=== PATIENT | male | born 1975 | race Caucasian/White ===

== ENCOUNTER 2022-03-31 11:27 | Inpatient (IN) | payer BC ==
[~2022-03-31] VITALS: Ht 177.8 cm; Wt 84.1 kg
[2022-03-31 19:46] LABS: BASOPHILS % (AUTO) 0.2 % (0-1); EOSINOPHILS % (AUTO) 0.1 % (0-6); HEMATOCRIT 45.1 % (42.0-52.0); HEMOGLOBIN 15.7 g/dl (14.0-17.9); LYMPHOCYTES # (AUTO) 0.6 X10'3 (1.1-4.8); LYMPHOCYTES % (AUTO) 14.7 % (21-51); MEAN CORPUSCULAR HEMOGLOBIN 35.1 PG (27.0-31.0); MEAN CORPUSCULAR HGB CONC 34.8 g/dL (33.0-36.5); MEAN CORPUSCULAR VOLUME 100.8 FL (78-98); MEAN PLATELET VOLUME 7.1 FL (7.4-10.4); MONOCYTES # (AUTO) 0.2 X10'3 (0-0.9); MONOCYTES % (AUTO) 4.3 % (2-12); NEUTROPHILS # (AUTO) 3.5 X10'3 (1.8-7.7); NEUTROPHILS % (AUTO) 80.7 % (42-75); PLATELET COUNT 109 X10'3 (140-440); RED BLOOD COUNT 4.47 X10'6 (4.70-6.10); RED CELL DISTRIBUTION WIDTH 14.4 % (11.5-14.5); WHITE BLOOD COUNT 4.4 X10'3 (4.5-11.0)
[2022-03-31 20:00] LABS: ANION GAP 28 (8-16); BLOOD UREA NITROGEN 13 MG/DL (7-18); BUN/CREATININE RATIO 16.3 (5.4-32.0); CALCIUM 8.6 MG/DL (8.5-10.1); CHLORIDE 91 MMOL/L (99-107); GLUCOSE 89 MG/DL (70-104); POTASSIUM 3.8 MMOL/L (3.5-5.1); SODIUM 133 MMOL/L (135-145); eGFR > 90 ML/MIN
[2022-03-31 20:01] LABS: ALANINE AMINOTRANSFERASE 81 U/L (12-78); ALBUMIN 3.7 G/DL (3.4-5.0); ALBUMIN/GLOBULIN RATIO 1.2 (1.1-1.5); ALKALINE PHOSPHATASE 124 IU/L (46-116); ASPARTATE AMINO TRANSFERASE 161 U/L (10-37); BILIRUBIN,TOTAL 0.7 MG/DL (0.1-1.0); TOTAL PROTEIN 6.9 G/DL (6.4-8.2)
[2022-03-31 20:02] LABS: ETHANOL 0.406 GM/DL (0.0-0.010); LIPASE 1625 U/L (73-393)
[2022-03-31 20:04] LABS: TOTAL CARBON DIOXIDE 13.9 MMOL/L (24-32)
[2022-03-31] MEDS ORDERED: folic acid 1mg/0.2ml inj IV ONE (20:15)
[2022-03-31] MEDS ORDERED: thiamine 100mg/ml 2ml inj. IV ONE (20:15)
[2022-03-31] MEDS ORDERED: normal saline 1000ML IV soln IV ONE (20:15)
[2022-03-31] MEDS ORDERED: dextrose 5%-1/2 normal saline 1,000 ML IV ONE (20:40)
[2022-03-31] MEDS ORDERED: nicotine 21mg patch - 24 hr TD ONE (20:45)
[2022-03-31] MEDS ORDERED: LORazepam 2 mg/ml vial IV ONE (20:45)
[2022-03-31] MEDS ORDERED: temazepam 15mg capsule PO PRN (21:00)
[2022-03-31] MEDS ORDERED: ARIP5TAB60 PO (21:35)
[2022-03-31] MEDS ORDERED: CITA40TA16 PO (21:35)
[2022-03-31] MEDS ORDERED: PANT40TA54 PO (21:35)
[2022-03-31] MEDS ORDERED: potassium Cl 20 mEq SR tablet PO PRN (22:10)
[2022-03-31] MEDS ORDERED: potassium Cl 40MEQ/1/2NS 520ml 520 ML IV PRN (22:10)
[2022-03-31] MEDS ORDERED: magnesium Cl slow-release 64mg tablet PO PRN (22:10)
[2022-03-31] MEDS ORDERED: mag hydrox/Alum hydrox/simeth 30ml oral suspension PO PRN (22:10)
[2022-03-31] MEDS ORDERED: magnesium 4gm in 100ml NS 100 ML IV PRN (22:10)
[2022-03-31] MEDS ORDERED: acetaminophen 325mg tablet PO PRN ×2 (22:10)
[2022-03-31] MEDS ORDERED: ondansetron/PF 4mg/2ml inj IV PRN (22:10)
[2022-03-31] MEDS ORDERED: magnesium hydroxide 30ml (MOM) UD suspension PO PRN (22:10)
[2022-03-31] MEDS ORDERED: dicyclomine 10 MG capsule PO PRN (22:15)
[2022-03-31] MEDS: pantoprazole 40mg Tablet.DR PO SCH (22:47)
[2022-03-31] MEDS: normal saline 1000ml 1,000 ML IV SCH (23:50)
--- NOTE | 2022-04-01 01:07 | NUR ---
ANTHONY [phone] GIRLFRIEND
[2022-04-01] MEDS: LORazepam 2 mg/ml vial IV PRN ×2 (01:15→19:44)
--- NOTE | 2022-04-01 01:45 | NUR ---
PT REFUSING TO STAY IN BED AND REFUSING TO COMPLY WITH THE NPO ORDERS. PT EDUCATED ON THE IMPORTANCE OF THE NPO ORDERS. PT IS CONTINUING TO EAT FOOD FROM HOME. DR BOWEN NOTIFIED OF PTS NONCOMPLIANCE WITH NPO ORDERS.
[2022-04-01] MEDS ORDERED: haloperidol lactate 5mg/ml inj IM ONE (02:05)
[2022-04-01 03:44] LABS: ALANINE AMINOTRANSFERASE 71 U/L (12-78); ALBUMIN 3.2 G/DL (3.4-5.0); ALBUMIN/GLOBULIN RATIO 1.2 (1.1-1.5); ALKALINE PHOSPHATASE 103 IU/L (46-116); ANION GAP 19 (8-16); ASPARTATE AMINO TRANSFERASE 124 U/L (10-37); BILIRUBIN,TOTAL 0.6 MG/DL (0.1-1.0); BLOOD UREA NITROGEN 8 MG/DL (7-18); CALCIUM 7.9 MG/DL (8.5-10.1); CHLORIDE 98 MMOL/L (99-107); CREATININE 0.89 MG/DL (0.60-1.10); GLUCOSE 171 MG/DL (70-104); MAGNESIUM 1.7 MG/DL (1.5-2.4); PHOSPHORUS 2.4 MG/DL (2.3-4.5); POTASSIUM 3.4 MMOL/L (3.5-5.1); SODIUM 134 MMOL/L (135-145); TOTAL CARBON DIOXIDE 17.5 MMOL/L (24-32); TOTAL PROTEIN 5.9 G/DL (6.4-8.2); eGFR > 90 ML/MIN
[2022-04-01 03:53] LABS: LIPASE 2396 U/L (73-393)
[2022-04-01 04:20] LABS: BASOPHILS % (AUTO) 0.3 % (0-1); EOSINOPHILS % (AUTO) 0.1 % (0-6); HEMATOCRIT 39.9 % (42.0-52.0); HEMOGLOBIN 13.6 g/dl (14.0-17.9); LYMPHOCYTES % (AUTO) 20.5 % (21-51); MEAN CORPUSCULAR HEMOGLOBIN 34.6 PG (27.0-31.0); MEAN CORPUSCULAR VOLUME 101.9 FL (78-98); MEAN PLATELET VOLUME 7.1 FL (7.4-10.4); MONOCYTES # (AUTO) 0.4 X10'3 (0-0.9); MONOCYTES % (AUTO) 9.1 % (2-12); NEUTROPHILS # (AUTO) 3.3 X10'3 (1.8-7.7); PLATELET COUNT 102 X10'3 (140-440); RED BLOOD COUNT 3.92 X10'6 (4.70-6.10); RED CELL DISTRIBUTION WIDTH 14.7 % (11.5-14.5); WHITE BLOOD COUNT 4.7 X10'3 (4.5-11.0)
[2022-04-01] MEDS: normal saline 1000ml 1,000 ML IV SCH ×3 (05:56→20:24)
[2022-04-01] MEDS ORDERED: heparin, porcine 5000 units/ml vial SQ SCH (08:00)
[2022-04-01] MEDS: pantoprazole 40mg Tablet.DR PO SCH ×3 (08:00→21:14)
[2022-04-01] MEDS ORDERED: atenolol 50mg tablet PO SCH (08:00)
--- NOTE | 2022-04-01 08:22 | NUR ---
PAGER ID: [phone] MESSAGE: ED 9 Jp Rodriguez. Critical lab: lactic acid 4.8. Do you want 2 bags of NS? Sejal
[2022-04-01] MEDS: docusate sod 100mg capsule PO SCH ×2 (08:41→20:00)
[2022-04-01] MEDS: citalopram 20mg tablet PO SCH (08:43)
[2022-04-01] MEDS: nicotine 14mg patch - 24hr TD SCH (08:47)
[2022-04-01] MEDS: thiamine 100mg/ml 2ml inj. IV SCH ×3 (08:49→20:24)
[2022-04-01] MEDS: folic acid 1mg/0.2ml inj IV SCH (09:40)
[2022-04-01] MEDS: LORazepam 1 MG tablet PO PRN ×2 (09:45→14:45)
--- NOTE | 2022-04-01 09:49 | NUR ---
Pt advised that he is having visual and auditory hallucinations. RN gave PRN Ativan 2 mg
--- NOTE | 2022-04-01 11:42 | NUR ---
GF by bedside, pt refused V/S
[2022-04-01] MEDS ORDERED: atenolol 25mg tablet PO SCH (12:53)
--- NOTE | 2022-04-01 19:43 | NUR ---
REPORT CALLED TO FLOOR NURSE. TECH TO TX TO ROOM 358
[2022-04-01 20:05] VITALS: BP 135/87
[2022-04-01 22:39] VITALS: BP 138/71
[2022-04-02] MEDS: normal saline 1000ml 1,000 ML IV SCH (02:28)
[2022-04-02 05:23] VITALS: BP 141/83
[2022-04-02 05:53] LABS: BASOPHILS % (AUTO) 0.3 % (0-1); EOSINOPHILS % (AUTO) 0.8 % (0-6); HEMOGLOBIN 11.7 g/dl (14.0-17.9); LYMPHOCYTES % (AUTO) 34.3 % (21-51); MEAN CORPUSCULAR HEMOGLOBIN 35.4 PG (27.0-31.0); MEAN CORPUSCULAR HGB CONC 35.4 g/dL (33.0-36.5); MEAN PLATELET VOLUME 7.6 FL (7.4-10.4); MONOCYTES # (AUTO) 0.3 X10'3 (0-0.9); MONOCYTES % (AUTO) 10.8 % (2-12); NEUTROPHILS # (AUTO) 1.6 X10'3 (1.8-7.7); NEUTROPHILS % (AUTO) 53.8 % (42-75); PLATELET COUNT 78 X10'3 (140-440); RED CELL DISTRIBUTION WIDTH 14.6 % (11.5-14.5); WHITE BLOOD COUNT 2.9 X10'3 (4.5-11.0)
[2022-04-02 06:22] LABS: ALANINE AMINOTRANSFERASE 58 U/L (12-78); ALBUMIN 2.8 G/DL (3.4-5.0); ALBUMIN/GLOBULIN RATIO 1.2 (1.1-1.5); ALKALINE PHOSPHATASE 99 IU/L (46-116); ANION GAP 4 (8-16); ASPARTATE AMINO TRANSFERASE 127 U/L (10-37); BILIRUBIN,TOTAL 0.8 MG/DL (0.1-1.0); BLOOD UREA NITROGEN 6 MG/DL (7-18); CHLORIDE 101 MMOL/L (99-107); CREATININE 0.67 MG/DL (0.60-1.10); GLUCOSE 96 MG/DL (70-104); MAGNESIUM 1.6 MG/DL (1.5-2.4); PHOSPHORUS 1.9 MG/DL (2.3-4.5); SODIUM 134 MMOL/L (135-145); TOTAL CARBON DIOXIDE 29.4 MMOL/L (24-32); TOTAL PROTEIN 5.1 G/DL (6.4-8.2); eGFR > 90 ML/MIN
--- NOTE | 2022-04-02 06:22 | NUR ---
Student documentation: I have reviewed and agree with all interventions, assessments performed and documented by Meli Arias Medication Administration: For this medication-pass time frame, all medication were reviewed, dispensed, administered and documented per hospital policy by Meli Patiño
[2022-04-02 06:56] LABS: POTASSIUM 2.7 MMOL/L (3.5-5.1)
[2022-04-02 07:20] LABS: TOTAL CELLS COUNTED 100
[2022-04-02 07:21] LABS: PLATELET ESTIMATE DECREASED
[2022-04-02] MEDS: potassium Cl 20 mEq SR tablet PO PRN ×3 (07:43→14:39)
[2022-04-02] MEDS: nicotine 14mg patch - 24hr TD SCH (07:45)
[2022-04-02 07:46] LABS: LIPASE 2028 U/L (73-393)
[2022-04-02] MEDS: citalopram 20mg tablet PO SCH (07:46)
[2022-04-02] MEDS: pantoprazole 40mg Tablet.DR PO SCH ×2 (07:46→08:00)
[2022-04-02] MEDS: thiamine 100mg/ml 2ml inj. IV SCH ×2 (07:47→14:38)
[2022-04-02] MEDS: LORazepam 2 mg/ml vial IV PRN (07:55)
[2022-04-02] MEDS: docusate sod 100mg capsule PO SCH (08:00)
--- NOTE | 2022-04-02 08:48 | NUR ---
Malnutrition consult "pt not eating well past 3 weeks": Pt admit DX etoh withdrawals and acute pancreatitis as well as transaminitis related to etoh per MD note. Pt hx vomiting/abdominal pain 1 day [employer] drinks half gallon of vodka daily for years per EMR. Pending scaled wt this admit w/ no prior scaled wt hx in EMR. Pt w/ mild weakness no edema/wounds, appears WD/WN per ER note, and initial PO regular diet intake pending documentation. At this time pt lacks minimum two malnutrition criteria. Will monitor for further malnutrition criteria this admit. Receiving routine thiamine/folic acid for etoh. Recommend changing diet to low-fat if signs of intolerance following initial regular diet intake. Addendum: 04/02/22 at [address] Amended: Links added.
[2022-04-02] MEDS ORDERED: LORA-269 PO (09:44)
--- NOTE | 2022-04-02 10:42 | NUR ---
PAGER ID: [phone] MESSAGE: [id number] Michael has a critical K+ 2.7 in process of replacement, radha ray yet. ROCAEL [id number]
--- NOTE | 2022-04-02 11:08 | NUR ---
Dr Boyer gave order for Potassium 40mEq PO x1 now and then pt is cleared for discharge. NEFTALI Glynn notified.
[2022-04-02] MEDS ORDERED: potassium Cl 20 mEq SR tablet PO ONE (11:11)
[2022-04-02] MEDS: LORazepam 1 MG tablet PO PRN (14:39)
[2022-04-02] MEDS: folic acid 1mg/0.2ml inj IV SCH (14:39)
[2022-04-03 13:49] LABS: HBSAG SCREEN Negative (Negative); HEP B CORE AB, TOT Negative (Negative)
== END 2022-04-02 14:55 | disposition home or self-care (01) | DRG 439 ==
LOC: ER 11:28 → ED HOLD 23:04 → EDBEDREQ 04-01 17:55 → SUR 3N 04-01 19:53
PROVIDERS: ADMIT Internal Medicine; ATTEND Internal Medicine
DX: K85.20 Alcohol induced acute pancreatitis without necrosis or infection (principal); E87.29 Other acidosis; F10.239 Alcohol dependence with withdrawal, unspecified; D69.59 Other secondary thrombocytopenia; E87.6 Hypokalemia; F32.A Depression, unspecified; F17.210 Nicotine dependence, cigarettes, uncomplicated; G89.29 Other chronic pain; K70.10 Alcoholic hepatitis without ascites; Z79.899 Other long term (current) drug therapy; Z71.6 Tobacco abuse counseling
CPT/HCPCS: 36415; 74176; 80053; 80320; 83605; 83690; 83735; 84100; 85007; 85025; 86704; 86705; 86706; 87040; 87081; 87340; 97161; 97530; 99285; G0378; J1630; J2060; J3411; J3490; J7030; J7042

== ENCOUNTER 2023-12-03 13:15 | Inpatient (IN) | payer BC, OTHER ==
[~2023-12-03] VITALS: Ht 177.8 cm; Wt 87.7 kg
[2023-12-24 12:07] LABS: BASOPHILS # (AUTO) 0.1 X10'3 (0-0.2); BASOPHILS % (AUTO) 0.4 % (0-1); EOSINOPHILS # (AUTO) 0.1 X10'3 (0-0.9); EOSINOPHILS % (AUTO) 0.8 % (0-6); LYMPHOCYTES % (AUTO) 25.2 % (21-51); MEAN CORPUSCULAR HEMOGLOBIN 31.5 PG (27.0-31.0); MEAN CORPUSCULAR VOLUME 92.7 FL (78-98); MEAN PLATELET VOLUME 6.4 FL (7.4-10.4); MONOCYTES # (AUTO) 0.7 X10'3 (0-0.9); MONOCYTES % (AUTO) 6.3 % (2-12); NEUTROPHILS % (AUTO) 67.3 % (42-75); PRE OP HEMATOCRIT 49.2 % (42.0-52.0); PRE OP HEMOGLOBIN 16.7 g/dL (14.0-17.9); PRE OP PLATELET COUNT 304 X10'3 (140-440); PRE OP WHITE BLOOD COUNT 11.9 10'3 (4.8-10.8); RED BLOOD COUNT 5.31 X10'6 (4.70-6.10); RED CELL DISTRIBUTION WIDTH 12.9 % (11.5-14.5)
[2023-12-24 12:14] LABS: ALBUMIN 4.2 G/DL (3.4-5.0); ALBUMIN/GLOBULIN RATIO 1.3 (1.1-1.5); ALKALINE PHOSPHATASE 81 IU/L (46-116); BLOOD UREA NITROGEN 8 MG/DL (7-18); BUN/CREATININE RATIO 8.3 (10.0-20.0); CALCIUM 9.2 MG/DL (8.5-10.1); CHLORIDE 104 MMOL/L (99-107); CREATININE 0.96 MG/DL (0.60-1.10); PRE OP ALT 28 U/L (30-65); PRE OP ANION GAP 11 (8-16); PRE OP AST 16 U/L (10-37); PRE OP BILIRUB, TOTAL 0.8 MG/DL (0.0-1.0); PRE OP GLUCOSE 87 MG/DL (70-104); PRE OP POTASSIUM 4.2 MMOL/L (3.4-5.1); PRE OP SODIUM 139 MMOL/L (135-145); TOTAL PROTEIN 7.5 G/DL (6.4-8.2); eGFR 84 ML/MIN
[2023-12-30] MEDS ORDERED: NO HOME MEDS (16:06)
[2023-12-31] VITALS (11 sets, daily range): BP systolic 102–136; BP diastolic 57–80; PULSE 58–77; RESP 14–16; TEMP 98.3; O2SAT 95–100
[2023-12-31] MEDS ORDERED: proCHLORperazine 10 MG/2 ml inj IV PRN (09:50)
[2023-12-31] MEDS ORDERED: meperidine/PF 25mg/ml syringe IV PRN ×3 (09:50)
[2023-12-31] MEDS ORDERED: morphine 4 MG/ML inj SYRINge IV PRN (09:50)
[2023-12-31] MEDS ORDERED: morphine 2 MG/ML inj. syringe IV PRN (09:50)
[2023-12-31] MEDS ORDERED: enalaprilat dihydrate 2.5mg/2ml vial IV PRN (09:50)
[2023-12-31] MEDS ORDERED: ringers solution, lacted 1,000 ML IV SCH (09:50)
[2023-12-31] MEDS ORDERED: labetalol 20mg/4ml (5mg/ml) syringe IV PRN (09:50)
[2023-12-31] MEDS: famotidine 20mg tablet PO ONE (12:33)
[2023-12-31] MEDS: ringers solution, lacted 1,000 ML IV SCH (12:34)
[2023-12-31] MEDS: ceFAZolin 2gm in dextrose, iso 50 ML IV ONE (12:35)
[2023-12-31] MEDS ORDERED: fentaNYL/PF 50MCG/1 ML 2ML syringe ONE (15:16)
[2023-12-31] MEDS ORDERED: midazolam 1 mg/ML 2ml injection ONE (15:16)
[2023-12-31] MEDS ORDERED: sevoflurane 250ml liquid IH ONE (15:42)
[2023-12-31] MEDS ORDERED: LIDOcaine 1% (10mg/ml)w/preservative inj. 20ml MDV ONE (15:48)
[2023-12-31] MEDS ORDERED: propofol inj 20 ML IV ONE (15:51)
[2023-12-31] MEDS ORDERED: meperidine/PF 50mg/ml syringe ONE (16:10)
[2023-12-31] MEDS ORDERED: LIDOcaine 1%/PF 5ML 10 MG/ML VIAL ONE (16:10)
[2023-12-31] MEDS ORDERED: rocuronium 10mg/ml inj IV ONE (16:10)
[2023-12-31] MEDS ORDERED: metroNIDAZOLE-Flagyl 500mg/NS 100ml IVPB IV ONE (16:20)
[2023-12-31] MEDS: BUPIVAcaine 2.5mg/ml inj 50ml vial (contains preservative) SQ ONE (16:42)
[2023-12-31] MEDS: ondansetron/PF 4mg/2ml inj IV PRN (16:48)
[2023-12-31] MEDS: oxyCODONE/APAP 5-325mg tablet PO PRN (17:15)
== END 2023-12-31 17:50 | disposition home or self-care (01) | DRG 331 ==
LOC: PAS IN 12-31 11:42
PROVIDERS: ADMIT Surgery; ATTEND Surgery
PROC: 0DTJ4ZZ Resection of Appendix, Percutaneous Endoscopic Approach (ICD-10-PCS; 2023-12-31)
PROC: 8E0W4CZ Robotic Assisted Procedure of Trunk Region, Percutaneous Endoscopic Approach (ICD-10-PCS; 2023-12-31)
PROC: 0DBH4ZZ Excision of Cecum, Percutaneous Endoscopic Approach (ICD-10-PCS; principal; 2023-12-31 15:42)
DX: D49.0 Neoplasm of unspecified behavior of digestive system (principal); G89.29 Other chronic pain; M54.9 Dorsalgia, unspecified
CPT/HCPCS: Z7506; Z7508; 36415; 71046; 80053; 82948; 85025; 86885; 86900; 86901; 87081; 93005; A4215; A4618; C1758; J0690; J1100; J1885; J2003; J2175; J2250; J2270; J2405; J2704; J3010; J3490; J7120